=== PATIENT | male | born 1960 | race Caucasian/White ===

== ENCOUNTER 2025-02-21 02:15 | Emergency (ER) | payer SELFPAY ==
[~2025-02-21] VITALS: Ht 180.3 cm; Wt 91.0 kg
[2025-02-21 02:38] VITALS: O2SAT 98
[2025-02-21] MEDS ORDERED: TETANUS, DIPHTHERIA, PERTUSSIS VAC/PF 0.5ML (>10YR OLD) IM ONE (03:45)
[2025-02-21] MEDS ORDERED: LIDOCAINE HCL/PF 1% 10 MG/ML 5ML VIAL INFIL ONE ×2 (03:45→04:45)
[2025-02-21] MEDS ORDERED: BACITRACIN ZINC OINT UDPKT TOP ONE (03:45)
[2025-02-21] MEDS ORDERED: BO1 TP (05:52)
[2025-02-21] MEDS: ACETAMINOPHEN 500MG TABLET PO ONE (06:10)
[2025-02-21] MEDS: TETANUS, DIPHTHERIA, PERTUSSIS VAC/PF 0.5ML (>10YR OLD) IM ONE (06:11)
[2025-02-21 06:21] VITALS: BP 128/79; PULSE 74; RESP 18; TEMP 36.7; O2SAT 96
== END 2025-02-21 06:21 | disposition home or self-care (01) ==
LOC: ER 02:15
DX: S01.112A Laceration without foreign body of left eyelid and periocular area, initial encounter (principal); S01.81XA Laceration without foreign body of other part of head, initial encounter; Y08.89XA Assault by other specified means, initial encounter; Y93.89 Activity, other specified; Y92.89 Other specified places as the place of occurrence of the external cause; Y99.8 Other external cause status
CPT/HCPCS: 99285; 70450; 70486; 72125; 90715; 12016; 90471; J2003